=== PATIENT | female | born 1975 | race Caucasian/White ===

== ENCOUNTER 2018-12-07 06:50 | Emergency (ER) | payer OTHER ==
[~2018-12-07] VITALS: Ht 165.1 cm; Wt 102.1 kg
[2018-12-07] MEDS ORDERED: KETOROLAC TROMETH 60MG/2ML VIAL ONE (07:42)
[2018-12-07] MEDS ORDERED: KETOROLAC TROMETH 60MG/2ML VIAL IM ONE (07:45)
[2018-12-07 08:02] VITALS: BP 155/89
== END 2018-12-07 09:04 | disposition home or self-care (01) ==
LOC: EDBD 06:50 → ER 06:54
DX: S16.1XXA Strain of muscle, fascia and tendon at neck level, initial encounter (principal); S39.012A Strain of muscle, fascia and tendon of lower back, initial encounter; V49.49XA Driver injured in collision with other motor vehicles in traffic accident, initial encounter; Y93.89 Activity, other specified; Y99.8 Other external cause status; Y92.488 Other paved roadways as the place of occurrence of the external cause
CPT/HCPCS: 72040; 72100; 72125; 96372; 99284; J1885